=== PATIENT | female | born 1960 | race Caucasian/White ===

== ENCOUNTER → 2017-05-20 | Outpatient (CLI) | payer BC ==
--- NOTE | 2017-06-04 11:48 | MM ---
Reason for exam: screening (asymptomatic). Last mammogram was performed 4 years and 10 months ago. History: Family history of breast cancer in sister at age 63. Benign US LT VAD breast biopsy of the left breast, July 07, 2012. Benign left breast aspiration of the left breast, July 07, 2012. Benign cyst aspiration of the left breast, November 15, 2006. Benign cyst aspiration of the left breast, 2003. Took hormonal contraceptives for 10 years beginning at age 20. Physical Findings: A clinical breast exam by your physician is recommended on an annual basis and results should be correlated with mammographic findings. MG 3D Screening Mammo W/Cad Bilateral CC and MLO view(s) were taken. Prior study comparison: April 14, 2013, mammogram, performed at [facility]. July 07, 2012, left breast digital mammogram. June 25, 2012, left diagnostic mammogram w/CAD. The breast tissue is extremely dense which could obscure a lesion on mammography. Previous mammotome biopsy in the left breast. No significant changes when compared with prior studies. ASSESSMENT: Benign, BI-RAD 2 RECOMMENDATION: Routine screening mammogram of both breasts in 1 year.
== END | disposition home or self-care (01) ==
LOC: RADMAMWWP 10:03
PROVIDERS: ATTEND Obstetrics & Gynecology
DX: Z12.31 Encounter for screening mammogram for malignant neoplasm of breast (principal); Z80.3 Family history of malignant neoplasm of breast
CPT/HCPCS: 77063; G0202

== ENCOUNTER 2017-06-11 08:32 | Day surgery (SDC) | payer BC ==
[2017-06-07 11:20] VITALS: BMI 22.6
[~2017-06-11 08:32] MED LIST: LACTATED RINGERS 1,000 ML IV SCH
[2017-06-11 08:42] VITALS: TEMP 97.4
[2017-06-11] MEDS ORDERED: LACTATED RINGERS 1,000 ML IV ONE (08:42)
[2017-06-11] MEDS ORDERED: LIDOCAINE 1% 20 ML VIAL (10MG/ML) FOR IV START INTRADERMA ONE (08:42)
[2017-06-11] MEDS ORDERED: PROPOFOL 10 MG/ML 20 ML VIAL IV ONE (09:19)
--- NOTE | 2017-06-11 10:01 | P.PCN ---
Date of Procedure: 06/11/17 Preoperative Diagnosis: Postoperative Diagnosis: Procedure(s) Performed: Procedure: Esophagogastroduodenoscopy and biopsy. Preoperative diagnosis: Dysphagia. Postoperative diagnosis: 1. Hiatal hernia and benign esophageal, dilated to 18 mm. 2. mild antral gastritis. 3. Multiple biopsies obtained from the duodenum , antrum and esophagus. Preparation and sedation: Was provided by anesthesia. Brief clinical history: The patient is a 56-year-old female with history of reflux disease is referred for this evaluation because of onset of intermittent epigastric pain and dysphagia. She wakes up at night at times to take Tums. No other alarm symptoms or anemia. Procedures: With the patient on her left lateral decubitus position and after informed consent and adequate sedation, I passed the Olympus-GIF 160 video upper endoscope through the cricopharyngeus down the esophagus. GE junction was around 36 cm from the incisors and there was a 2 cm sliding hiatal hernia. At the level of the GE junction there was a benign short stricture. The esophagus did not show any obvious erosions or ulcers. No Shafer's esophagus. The endoscope was then passed into the stomach which was insufflated with air and inspected in detail including the retroflex view in the cardia. There was some mottling and erythema in the antrum but no ulcers or erosions. Pyloric channel, duodenal bulb, post bulbar area and descending duodenum appeared within normal limits. Because of her symptoms, I obtained biopsies from the duodenum and antrum then I proceeded with the esophageal dilation before obtaining esophageal biopsies. The esophagus was dilated using the 15-18 mm Microvasive [id number] balloon dilator which was passed through the operating channel of the endoscope, centered at the level of the stricture and inflated in a stepwise fashion up to 18 mm. The patient tolerated the procedure well. Plan: The patient was reassured. Will keep on liquid diet today. Further plans can be made based on her course. I will keep you updated on her progress. Implants: Indications for Procedure: Operative Findings: Description of Procedure:
[2017-06-11 10:44] VITALS: BP 115/78; PULSE 60; RESP 24
== END 2017-06-11 10:44 | disposition home or self-care (01) ==
LOC: ORWHC2ENDO 08:32
DX: K22.2 Esophageal obstruction (principal); K29.70 Gastritis, unspecified, without bleeding; K44.9 Diaphragmatic hernia without obstruction or gangrene; K21.9 Gastro-esophageal reflux disease without esophagitis; F41.9 Anxiety disorder, unspecified; Z72.0 Tobacco use; Z79.899 Other long term (current) drug therapy
CPT/HCPCS: 88305; 88342; 43239; 43249; J2704; C1726; 43244

== ENCOUNTER → 2018-04-03 | Outpatient (CLI) | payer BC | END | disposition home or self-care (01) | LOC: RADECHMAIN 12:31 | PROVIDERS: ATTEND Family Medicine | DX: R00.2 Palpitations (principal) | CPT/HCPCS: 93225; 93226 ==

== ENCOUNTER → 2018-04-08 | Outpatient (CLI) | payer BC ==
--- NOTE | 2018-04-08 12:37 | ECHOS ---
STRESS ECHOCARDIOGRAM DATE OF SERVICE: 04/08/2018 INDICATIONS: Palpitations. MEDICATIONS: BASELINE HEART RATE: 70 BASELINE BLOOD PRESSURE: 136/92 MAXIMUM HEART RATE: 152 MAXIMUM BLOOD PRESSURE: 183/99 85% MPHR: 140 100% MPHR: 165 METS: 13.5 MAXIMUM STAGE REACHED: IV TOTAL EXERCISE TIME: 13 minutes CLINICAL INFORMATION: Baseline EKG revealed normal sinus rhythm without significant ST-T changes. Patient walked on standard Rafa protocol for 13 minutes, achieved a maximal heart rate of 152 beats per minute. Developed fatigue and shortness of breath but did not have any angina or any significant arrhythmia. There was some baseline artifact. At peak exercise, there was no evidence of any ST-segment changes to indicate ischemia. There was no arrhythmia. This is a negative stress test with excellent exercise capacity. Baseline echo images revealed normal wall motion and wall thickening. The quality of images were somewhat suboptimal. At peak exercise, there was good augmentation of left ventricular wall motion and wall thickening of all segments suggesting that there is no evidence of stress-induced ischemia. The quality of images was fair. FINAL IMPRESSION: 1. Excellent exercise capacity with a negative stress test by EKG criteria. 2. Normal stress echocardiogram with somewhat suboptimal images. MMODL / IJN: [id number] /
== END | disposition home or self-care (01) ==
LOC: RADNMMAIN 10:04
PROVIDERS: ATTEND Family Medicine
DX: R00.2 Palpitations (principal)
CPT/HCPCS: 93351

== ENCOUNTER → 2019-06-16 | Outpatient (CLI) | payer BC ==
--- NOTE | 2019-06-18 10:27 | MM ---
Reason for exam: screening (asymptomatic). Last mammogram was performed 2 years and 1 month ago. History: Family history of breast cancer in sister at age 63. Benign US LT VAD breast biopsy of the left breast, July 07, 2012. Benign left breast aspiration of the left breast, July 07, 2012. Benign cyst aspiration of the left breast, November 15, 2006. Benign cyst aspiration of the left breast, 2003. Took hormonal contraceptives for 10 years beginning at age 20. Physical Findings: A clinical breast exam by your physician is recommended on an annual basis and results should be correlated with mammographic findings. MG 3D Screening Mammo W/Cad Bilateral CC and MLO view(s) were taken. Prior study comparison: May 20, 2017, bilateral MG 3d screening mammo w/cad. April 14, 2013, mammogram, performed at [facility]. The breast tissue is extremely dense which could obscure a lesion on mammography. Previous mammotome biopsy in the left breast. No significant changes when compared with prior studies. ASSESSMENT: Benign, BI-RAD 2 RECOMMENDATION: Routine screening mammogram of both breasts in 1 year.
== END | disposition home or self-care (01) ==
LOC: RADMAMWWP 14:05
PROVIDERS: ATTEND Family Medicine
DX: Z12.31 Encounter for screening mammogram for malignant neoplasm of breast (principal)
CPT/HCPCS: 77063; 77067

== ENCOUNTER → 2019-12-25 | Outpatient (CLI) | payer BC | END | disposition home or self-care (01) | LOC: LABWHC1 12:44 | PROVIDERS: ATTEND Nurse Practitioner Family | DX: B34.9 Viral infection, unspecified (principal) | CPT/HCPCS: 87502 ==

== ENCOUNTER 2021-01-02 14:04 | Emergency (ER) | payer BC ==
[2021-01-02 14:16] VITALS: TEMP 98.2
--- NOTE | 2021-01-02 15:17 | ED ---
General Adult HPI - General Chief complaint: Recheck/Abnormal Lab/Rx Stated complaint: BAM Time Seen by Provider: 01/02/21 14:17 Source: patient, RN notes reviewed Mode of arrival: ambulatory Limitations: no limitations - History of Present Illness Initial comments: Patient is a pleasant 60-year-old female presenting to the emergency department with treatment for covid with BAM. This was ordered as an outpatient by primary care physician. Patient has had symptoms for 5-6 days. Patient was diagnosed +5 days ago. Patient does have chills and myalgias and generalized shaking. Mild cough. Patient has decreased appetite and some nausea. Patient does have history of hypertension and hyperlipidemia. No dyspnea. Patient is tolerating liquids. - Related Data Home Medications Medication Instructions Recorded Confirmed ALPRAZolam [Xanax] 0.25 mg PO HS PRN 06/07/17 06/07/17 diphenhydrAMINE HCL [Benadryl] 25 mg PO HS PRN 06/07/17 06/07/17 Allergies Allergy/AdvReac Type Severity Reaction Status Date / Time No Known Allergies Allergy Verified 01/02/21 14:16 Review of Systems ROS Statement: Those systems with pertinent positive or pertinent negative responses have been documented in the HPI. ROS Other: All systems not noted in ROS Statement are negative. Constitutional: Reports: chills Eyes: Denies: eye pain ENT: Denies: ear pain Respiratory: Reports: cough. Denies: dyspnea Cardiovascular: Denies: chest pain Endocrine: Reports: fatigue Gastrointestinal: Denies: abdominal pain Genitourinary: Denies: dysuria Musculoskeletal: Denies: back pain Skin: Denies: rash Neurological: Denies: weakness Past Medical History Additional Past Medical History / Comment(s): RECENT HX OF FOOD STICKING IN THROAT History of Any Multi-Drug Resistant Organisms: None Reported Past Surgical History: Cholecystectomy, Uterine Ablation Additional Past Surgical History / Comment(s): COLONOSCOPY Past Anesthesia/Blood Transfusion Reactions: Motion Sickness Past Psychological History: No Psychological Hx Reported Smoking Status: Current some day smoker Past Alcohol Use History: Occasional Past Drug Use History: None Reported - Past Family History Sister(s) Family Medical History: Cancer General Exam Limitations: no limitations General appearance: alert, in no apparent distress Head exam: Present: normocephalic Eye exam: Present: normal appearance Neck exam: Present: normal inspection Respiratory exam: Present: normal lung sounds bilaterally Cardiovascular Exam: Present: regular rate, normal rhythm GI/Abdominal exam: Present: soft. Absent: tenderness Extremities exam: Present: normal inspection. Absent: pedal edema, calf tenderness Neurological exam: Present: alert Psychiatric exam: Present: normal affect, normal mood Skin exam: Present: normal color Course Vital Signs 01/02/21 01/02/21 14:14 14:30 Temperature 98.2 F Pulse Rate 74 Respiratory 20 Rate Blood Pressure 123/81 O2 Sat by Pulse 98 99 Oximetry Medical Decision Making - Medical Decision Making Patient will receive treatment and be observed for one hour following this Disposition Clinical Impression: COVID-19 Disposition: HOME SELF-CARE Condition: Stable Instructions (If sedation given, give patient instructions): Viral Syndrome (ED) Additional Instructions: Please follow-up with primary care physician in the next couple days for recheck. Return for difficulty in breathing, not tolerating fluids or oral intake, worsening symptoms or other concerns. Continue Tylenol as needed. Yawf-mal-chuopnl vitamin C, vitamin D, and zinc. Is patient prescribed a controlled substance at d/c from ED?: No Referrals: Osvaldo Palencia MD [Primary Care Provider] - 1-2 days
[2021-01-02] MEDS ORDERED: BAMLANIVIMAB 700 MG in SODIUM CHLORIDE 0.9% 50 ML IVPB ONE (15:30)
[2021-01-02 17:11] VITALS: BP 128/75; PULSE 70; RESP 18
== END 2021-01-02 17:18 | disposition home or self-care (01) ==
LOC: EC 14:04
DX: U07.1 COVID-19 (principal); F17.200 Nicotine dependence, unspecified, uncomplicated; Z90.49 Acquired absence of other specified parts of digestive tract
CPT/HCPCS: 99283; 96365; Q0239

== ENCOUNTER → 2021-01-24 | Outpatient (CLI) | payer BC ==
[2021-01-24 08:54] VITALS: BP 125/77; PULSE 93; RESP 16; TEMP 98.4
--- NOTE | 2021-01-24 09:41 | P.HPOB ---
History of Present Illness H&P Date: 01/24/21 Chief Complaint: The patient is here for her routine gynecologic exam and ma mmogram. This is a 60-year-old with an LMP of 2014. The patient is here to establish with this office. She is status post endometrial ablation in 2014 and has been amenorrheic since then. She has occasional hot flashes but has not had any major issues with this. She is without gynecologic complaints and denies any postmenopausal bleeding. Review of Systems Weight has been stable. She denies respiratory or cardiac problems. GI: She has had some constipation for years. She has bowel movements about once per week. She states that this does not really cause any major problems for her, but she has tried to increase her fiber in her diet. 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 History of Any Multi-Drug Resistant Organisms: None Reported Past Surgical History: Cholecystectomy, Uterine Ablation Additional Past Surgical History / Comment(s): COLONOSCOPY 2016. Endometrial ablation in approximately 2014. Past Anesthesia/Blood Transfusion Reactions: Motion Sickness Past Psychological History: No Psychological Hx Reported Smoking Status: Light tobacco smoker (About 2 cigarettes per day.) Past Alcohol Use History: Occasional (4 per week) Additional Past Alcohol Use History / Comment(s): HAD QUIT SMOKING FOR 13 YEARS. STARTED SMOKING AGAIN 2013 ONLY SMOKES 1 -2 CIGARETTES DAILY Past Drug Use History: None Reported Additional History: She has been since 1988 and works at [employer]. - Past Family History Sister(s) Family Medical History: Cancer Additional Family Medical History / Comment(s): Breast cancer Medications and Allergies Home Medications Medication Instructions Recorded Confirmed Type diphenhydrAMINE HCL [Benadryl] 25 mg PO HS PRN 06/07/17 01/24/21 History Ascorbic Acid [Vitamin C] 500 mg PO DAILY 01/24/21 01/24/21 History Cholecalciferol [Vitamin D3 (25 25 mcg PO DAILY 01/24/21 01/24/21 History Mcg = 1000 Iu)] Zinc 50 mg PO DAILY 01/24/21 01/24/21 History Allergies Allergy/AdvReac Type Severity Reaction Status Date / Time No Known Allergies Allergy Verified 01/24/21 08:50 Exam Vital Signs Temp Pulse Resp BP Pulse Ox 01/24/21 08:50 98.4 F 93 16 125/77 98 Intake and Output 01/23/21 01/24/21 01/24/21 22:59 06:59 14:59 Other: Weight 62.596 kg Height 5 feet 6 inches, weight 138 pounds, BMI 22.3. This is a well-developed well-nourished white female who is alert and oriented times 3 in no acute distress. HEENT: Within normal limits. NECK: Supple without mass or thyromegaly. CHEST AND LUNGS: Clear to auscultation. HEART: Regular rate and rhythm. BREASTS: Are without mass or discharge. AXILLARY EXAM: Negative for adenopathy. BACK: Negative for CVA tenderness. ABDOMEN: Soft, nontender, without palpable masses. PELVIC EXAM: External genitalia reveals minimal atrophy. There is slight pigmentation at the posterior fourchette which has a benign appearance. 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 Cervix and vagina appear normal. There is no unusual discharge. There is no evidence of prolapse. The uterus is midposition, nongravid size and nontender. There are no palpable adnexal masses or tenderness. RECTAL EXAM: Rectovaginal exam is negative for mass or tenderness and is negative for occult blood. EXTREMITIES: Nontender. IMPRESSION: 1. 60-year-old menopausal female with normal gynecologic exam. PLAN: 1. Pap smear cotest was performed. 2. Self breast awareness was discussed with the patient. 3. Screening mammogram will be done today. 4. Osteoporosis prevention was discussed. I have stressed the importance of adequate calcium, vitamin D and regular exercise. Recommended amounts of calcium and vitamin D were also discussed. 5. I have recommended that she quit smoking altogether. We have discussed many reasons why this is important. 6. She was advised to return in one year for her annual well woman exam.
--- NOTE | 2021-01-25 10:07 | MM ---
Reason for exam: screening (asymptomatic). Last mammogram was performed 1 year and 7 months ago. History: Family history of breast cancer in sister at age 63. Benign US LT VAD breast biopsy of the left breast, July 07, 2012. Benign left breast aspiration of the left breast, July 07, 2012. Benign cyst aspiration of the left breast, November 15, 2006. Benign cyst aspiration of the left breast, 2003. Took hormonal contraceptives for 10 years beginning at age 20. Physical Findings: A clinical breast exam by your physician is recommended on an annual basis and results should be correlated with mammographic findings. MG 3D Screening Mammo W/Cad Bilateral CC and MLO view(s) were taken. Prior study comparison: June 16, 2019, bilateral MG 3d screening mammo w/cad. May 20, 2017, bilateral MG 3d screening mammo w/cad. The breast tissue is heterogeneously dense. This may lower the sensitivity of mammography. There are benign appearing round calcifications bilaterally. Previous mammotome biopsy in the left breast. Grouped indistinct calcifications right anterior central breast on MLO 24/58 and CC 18/62. ASSESSMENT: Incomplete: need additional imaging evaluation, BI-RAD 0 RECOMMENDATION: Special view mammogram of the right breast. [facility] will attempt to contact patient to return for supplemental views.
== END ==
LOC: WWCWWP 08:38
PROVIDERS: ATTEND Obstetrics & Gynecology
DX: Z01.419 Encounter for gynecological examination (general) (routine) without abnormal findings (principal); F17.210 Nicotine dependence, cigarettes, uncomplicated; Z12.31 Encounter for screening mammogram for malignant neoplasm of breast; Z80.3 Family history of malignant neoplasm of breast
CPT/HCPCS: 77063; 77067

== ENCOUNTER → 2021-01-26 | Outpatient (CLI) | payer BC ==
--- NOTE | 2021-01-26 08:42 | MM ---
Reason for exam: additional evaluation requested from abnormal screening. Last mammogram was performed less than 1 month ago. History: Family history of breast cancer in sister at age 63. Benign US LT VAD breast biopsy of the left breast, July 07, 2012. Benign left breast aspiration of the left breast, July 07, 2012. Benign cyst aspiration of the left breast, November 15, 2006. Benign cyst aspiration of the left breast, 2003. Took hormonal contraceptives for 10 years beginning at age 20. Physical Findings: Nurse did not find any significant physical abnormalities on exam. MG 3D Work Up W/Cad RT CC with magnification, LM with magnification, and LM view(s) were taken of the right breast. Prior study comparison: January 24, 2021, bilateral MG 3d screening mammo w/cad. June 16, 2019, bilateral MG 3d screening mammo w/cad. The breast tissue is heterogeneously dense. This may lower the sensitivity of mammography. Finding: There are typically benign segmental, almost rounded calcifications in the lower outer quadrant, middle position of the right breast. New finding since June 16, 2019. These results were verbally communicated with the patient and result sheet given to the patient on 01/26/21. ASSESSMENT: Probably benign, BI-RAD 3 RECOMMENDATION: Follow-up diagnostic mammogram of the right breast in 6 months. (magnifications views x 2)
== END | disposition home or self-care (01) ==
LOC: RADMAMWWP 07:30
PROVIDERS: ATTEND Obstetrics & Gynecology
DX: R92.2 Inconclusive mammogram (principal); R92.1 Mammographic calcification found on diagnostic imaging of breast; Z80.3 Family history of malignant neoplasm of breast
CPT/HCPCS: 77061; 77065

== ENCOUNTER → 2021-08-17 | Outpatient (CLI) | payer BC ==
--- NOTE | 2021-08-18 11:04 | MM ---
Reason for exam: follow-up at short interval from prior study. Last mammogram was performed 7 months ago. History: Family history of breast cancer in sister at age 63. Benign US LT VAD breast biopsy of the left breast, July 07, 2012. Benign left breast aspiration of the left breast, July 07, 2012. Benign cyst aspiration of the left breast, November 15, 2006. Benign cyst aspiration of the left breast, 2003. Took hormonal contraceptives for 10 years beginning at age 20. Physical Findings: Nurse did not find any significant physical abnormalities on exam. MG 3D Diag Mammo W/Cad RT CC and MLO view(s) were taken of the right breast. Prior study comparison: January 26, 2021, right breast MG 3d work up w/cad RT. January 24, 2021, bilateral MG 3d screening mammo w/cad. June 16, 2019, bilateral MG 3d screening mammo w/cad. The breast tissue is heterogeneously dense. This may lower the sensitivity of mammography. Grouped calcifications, possibly early oil cyst calcifications lateral central middle depth stable to minimally increased. Continued follow up recommended. These results were verbally communicated with the patient and result sheet given to the patient on 08/17/21. ASSESSMENT: Probably benign, BI-RAD 3 RECOMMENDATION: Follow-up diagnostic mammogram of both breasts in 5 months. Back on schedule for January 2022.
== END | disposition home or self-care (01) ==
LOC: RADMAMWWP 14:43
PROVIDERS: ATTEND Obstetrics & Gynecology
DX: R92.8 Other abnormal and inconclusive findings on diagnostic imaging of breast (principal)
CPT/HCPCS: 77061; 77065

== ENCOUNTER → 2022-01-25 | Outpatient (CLI) | payer BC ==
--- NOTE | 2022-01-25 11:01 | MM ---
Reason for exam: follow-up at short interval from prior study. Last mammogram was performed 5 months ago. History: Family history of breast cancer in daughter at age 27 and breast cancer in sister at age 63. Benign US LT VAD breast biopsy of the left breast, July 07, 2012. Benign left breast aspiration of the left breast, July 07, 2012. Benign cyst aspiration of the left breast, November 15, 2006. Benign cyst aspiration of the left breast, 2003. Took hormonal contraceptives for 10 years beginning at age 20. Physical Findings: A clinical breast exam by your physician is recommended on an annual basis and results should be correlated with mammographic findings. MG 3D Diag Mammo W/Cad HARSHIL Bilateral CC and MLO view(s) were taken. CC with magnification, LM with magnification, and LM view(s) were taken of the right breast. Prior study comparison: August 17, 2021, right breast MG 3d diag mammo w/cad RT. January 26, 2021, right breast MG 3d work up w/cad RT. The breast tissue is heterogeneously dense. This may lower the sensitivity of mammography. Previous mammotome biopsy in the left breast. Right central 8 o'clock calcifications redemonstrated. These appear to have slightly increased. Again on magnification views suspect oil cyst calcifications. Ongoing short follow up recommended. Results were given to the patient verbally at the time of the exam. ASSESSMENT: Probably benign, BI-RAD 3 RECOMMENDATION: Follow-up diagnostic mammogram of the right breast in 6 months.
== END | disposition home or self-care (01) ==
LOC: RADMAMWWP 10:07
PROVIDERS: ATTEND Obstetrics & Gynecology
DX: R92.8 Other abnormal and inconclusive findings on diagnostic imaging of breast (principal)
CPT/HCPCS: 77062; 77066

== ENCOUNTER → 2022-07-17 | Outpatient (CLI) | payer BC ==
[2022-07-17 14:29] VITALS: BP 134/90; PULSE 70; RESP 17; TEMP 97.8
--- NOTE | 2022-07-17 16:09 | P.HPOB ---
History of Present Illness H&P Date: 07/17/22 Chief Complaint: The patient is here for her routine gynecologic exam. This is a 62-year-old with an LMP of 2014. The patient is without gynecologic complaints and denies any postmenopausal bleeding. Her last Pap smear on 01/24/2021 showed ASCUS with negative high-risk HPV testing. Her last mammogram was a bilateral diagnostic mammogram on 01/25/2022 and was probably benign. Right diagnostic mammogram was recommended in 6 months. The patient states she would like to have that mammogram done at [facility]. Review of Systems The patient has gained 10 pounds over the last year. She denies respiratory, cardiac, or G.I. problems. 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 History of Any Multi-Drug Resistant Organisms: None Reported Past Surgical History: Cholecystectomy, Uterine Ablation Additional Past Surgical History / Comment(s): COLONOSCOPY 2016. Endometrial ablation in approximately 2014. Past Anesthesia/Blood Transfusion Reactions: Motion Sickness Past Psychological History: No Psychological Hx Reported Smoking Status: Light tobacco smoker (About 2 cigarettes per day.) Past Alcohol Use History: Occasional (5 per week) Additional Past Alcohol Use History / Comment(s): HAD QUIT SMOKING FOR 13 YEARS. 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 - Past Family History Sister(s) Family Medical History: Cancer Additional Family Medical History / Comment(s): Breast cancer Daughter(s) Family Medical History: Cancer Additional Family Medical History / Comment(s): Diagnosed with breast cancer at age 27. The patient states her daughter tested negative for cancer gene mutations including the BRCA gene. Medications and Allergies Home Medications Medication Instructions Recorded Confirmed Type Famotidine [Pepcid] 40 mg PO DAILY 07/17/22 07/17/22 History Allergies Allergy/AdvReac Type Severity Reaction Status Date / Time No Known Allergies Allergy Verified 07/17/22 14:14 Exam Vital Signs Temp Pulse Resp BP Pulse Ox 07/17/22 14:26 97.8 F 70 17 134/90 96 Intake and Output 07/17/22 07/17/22 07/17/22 06:59 14:59 22:59 Other: Weight 67.132 kg Height 5 feet 6 inches, weight 148 pounds, BMI 23.9. This is a well-developed well-nourished white female who is alert and oriented times 3 in no acute distress. HEENT: Within normal limits. NECK: Supple without mass or thyromegaly. CHEST AND LUNGS: Clear to auscultation. HEART: Regular rate and rhythm. BREASTS: Are without mass or discharge. AXILLARY EXAM: Negative for adenopathy. BACK: Negative for CVA tenderness. ABDOMEN: Soft, nontender, without palpable masses. PELVIC EXAM: Normal external genitalia with mild atrophy. Cervix and vagina appear normal with mild atrophy. There is no unusual discharge. There is no evidence of prolapse. The uterus is midposition, nongravid size and nontender. There are no palpable adnexal masses or tenderness. RECTAL EXAM: Rectovaginal exam is negative for mass or tenderness and is negative for occult blood. EXTREMITIES: Nontender. IMPRESSION: 1. 70-year-old menopausal female with normal gynecologic exam. 2. Previous Pap smear done on 01/24/2021 showed ASCUS with negative high-risk HPV testing. 3. Bilateral diagnostic mammogram done on 01/25/2022 was felt to be probably benign. 6 month right diagnostic mammogram was recommended. 4. Strong family history of breast cancer in her her sister and her daughter. PLAN: 1. Pap smear was deferred. The ASCCP management guidelines indicated a five- year risk for MARVIN-3 or greater of 0.40%. 3 year follow-up was recommended. I will be done in 1-2 years. 2. Self breast awareness was discussed with the patient. We have also discussed symptoms associated with inflammatory breast cancer. 3. Right diagnostic mammogram is due. The order slip was given to the patient for this. The patient states she is planning on having this done at [facility]. She understands she will need to bring her imaging studies with her since her last one was done at [facility]. She plans on doing this. I have stressed the importance of following through with the appropriate follow- up. 4. We have discussed the option of cancer genetic counseling and testing. She understands she is at higher risk for breast cancer because of her family history. Her daughter apparently tested negative for BRCA gene mutations. At this time she is not interested in proceeding with this type of cancer genetic counseling and testing. She will call if she wants to proceed with that kind of counseling and testing. 5. Osteoporosis prevention was discussed. I have stressed the importance of adequate calcium, vitamin D and regular exercise. Recommended amounts of calcium and vitamin D were also discussed. I have recommended baseline bone density testing. She states she would like to do this next year at her annual examination. 6. She has completed her Covid vaccination series and has received 2 boosters. 7. She was advised to return in one year for her annual well woman exam.
== END | disposition home or self-care (01) ==
LOC: WWCWWP 13:53
PROVIDERS: ATTEND Obstetrics & Gynecology
DX: Z53.9 Procedure and treatment not carried out, unspecified reason (principal)

== ENCOUNTER → 2022-07-30 | Outpatient (CLI) | payer BC ==
--- NOTE | 2022-07-30 10:19 | MM ---
Reason for Exam: Follow-up at short interval from prior study. Last screening mammogram was performed 6 month(s) ago. Patient History: Menarche at age 16. First Full-Term at age 30. Hormonal Contraceptives for 10 years from age 20 until age 29. 11/15/2006, Benign Cyst Aspiration on the left side. 2003, Benign Cyst Aspiration on the left side. 07/07/2012, Benign Cyst Aspiration on the left side. 07/07/2012, Benign Core Biopsy on the left side. Sister had breast cancer, age 63. Daughter had breast cancer, age 27. Risk Values: Ave 5 year model risk: 5.3%. NCI Lifetime model risk: 24.7%. Prior Study Comparison: 05/20/2017 Bilateral Screening Mammogram, [facility]. 06/16/2019 Bilateral Screening Mammogram, [facility]. 01/24/2021 Bilateral Screening Mammogram, [facility]. 01/26/2021 Right Diagnostic Mammogram, [facility]. 08/17/2021 Right Diagnostic Mammogram, [facility]. 01/25/2022 Bilateral Diagnostic Mammogram, [facility]. Tissue Density: Right: The breast tissue is heterogeneously dense. This may lower the sensitivity of mammography. Findings: Analyzed By CAD. Stable benign-appearing calcifications within the right breast. No new worrisome cluster microcalcifications. No new suspicious mass. Stable asymmetric right outer breast density. Patient reports pain and thickening along the right lateral breast. Overall Assessment: Incomplete: need additional imaging evaluation, BI-RAD 0 Management: Diagnostic Breast Ultrasound of the right breast. A clinical breast exam by your physician is recommended on an annual basis and results should be correlated with mammographic findings. This exam should not preclude additional follow-up of suspicious palpable abnormalities. Results were given to the patient verbally at the time of exam. Electronically signed and approved by: Todd Joyner D.O.
--- NOTE | 2022-07-30 11:16 | USB ---
Reason for Exam: Additional evaluation requested from abnormal screening. Patient History: Menarche at age 16. First Full-Term at age 30. Hormonal Contraceptives for 10 years from age 20 until age 29. 11/15/2006, Benign Cyst Aspiration on the left side. 2003, Benign Cyst Aspiration on the left side. 07/07/2012, Benign Cyst Aspiration on the left side. 07/07/2012, Benign Core Biopsy on the left side. Sister had breast cancer, age 63. Daughter had breast cancer, age 27. Risk Values: Ave 5 year model risk: 5.3%. NCI Lifetime model risk: 24.7%. Technique: Method: Targeted. Prior Study Comparison: 01/26/2021 Right Diagnostic Mammogram, [facility]. 08/17/2021 Right Diagnostic Mammogram, [facility]. 01/25/2022 Bilateral Diagnostic Mammogram, [facility]. Findings: The upper outer quadrant of the right breast, the axilla of the right breast and the retroareolar of the right breast were scanned. Limited ultrasound of the right lateral breast from 6-12 o'clock was performed. Ultrasound images of the nipple and axilla were also performed. There is a simple cyst within the right breast at 10:00 6 hours from the nipple measuring 0.4 x 0.4 x 0.4 cm without internal vascularity. Overall Assessment: Benign, BI-RAD 2 Management: Screening Mammogram of both breasts in 6 months. A clinical breast exam by your physician is recommended on an annual basis and results should be correlated with mammographic findings. This exam should not preclude additional follow-up of suspicious palpable abnormalities. ??Results were given to the patient verbally at the time of exam. Electronically signed and approved by: Todd Joyner D.O.
--- NOTE | 2022-07-31 17:39 | P.PN ---
Progress Note - Text Progress Note Date: 07/31/22 OUTPATIENT FOLLOW-UP NOTE TEST(S)/RESULTS: Right diagnostic mammogram was done on 07/30/2022. This did require a right breast ultrasound as well. The findings were benign and 6 month bilateral mammogram was recommended. METHOD OF NOTIFICATION: The patient was notified by phone. PATIENT COMMENTS: The patient feels strongly that she would like to have a bilateral diagnostic mammogram done in 6 months. She has a long history of breast procedures and abnormal mammograms she also has a sister who had breast cancer and a daughter who had breast cancer. DIAGNOSIS: Benign right diagnostic mammogram with right breast ultrasound. DISCUSSION: Bilateral diagnostic mammogram in 6 months. The order slip will be mailed to the patient. PLAN: As above. She will also return in 1 to 1-1/2 years for her well woman examination and Pap smear.
== END | disposition home or self-care (01) ==
LOC: RADMAMWWP 09:36
PROVIDERS: ATTEND Obstetrics & Gynecology
DX: R92.8 Other abnormal and inconclusive findings on diagnostic imaging of breast (principal)
CPT/HCPCS: 77061; 77065

== ENCOUNTER → 2023-02-06 | Outpatient (CLI) | payer BC ==
--- NOTE | 2023-02-06 09:23 | MM ---
Reason for Exam: Follow-up at short interval from prior study. Last screening mammogram was performed 12 month(s) ago. Patient History: Menarche at age 16. First Full-Term at age 30. Hormonal Contraceptives for 10 years from age 20 until age 29. 11/15/2006, Benign Cyst Aspiration on the left side. 2003, Benign Cyst Aspiration on the left side. 07/07/2012, Benign Cyst Aspiration on the left side. 07/07/2012, Benign Core Biopsy on the left side. Sister had breast cancer, age 63. Daughter had breast cancer, age 27. Risk Values: Ave 5 year model risk: 5.3%. NCI Lifetime model risk: 24.7%. Prior Study Comparison: 07/07/2012 Left Diagnostic Mammogram, [facility]. 04/14/2013 Screening Mammogram, [facility]. 05/20/2017 Bilateral Screening Mammogram, [facility]. 06/16/2019 Bilateral Screening Mammogram, [facility]. 01/24/2021 Bilateral Screening Mammogram, [facility]. 01/26/2021 Right Diagnostic Mammogram, [facility]. 08/17/2021 Right Diagnostic Mammogram, [facility]. 01/25/2022 Bilateral Diagnostic Mammogram, [facility]. 07/30/2022 Right US breast limited RT, [facility]. 07/30/2022 Right MG 3D diag mammo w/cad RT, [facility]. Tissue Density: The breast tissue is heterogeneously dense. This may lower the sensitivity of mammography. Findings: Analyzed By CAD. Left breast biopsy clip. No new suspicious masses, calcifications or distortions. Overall Assessment: Negative, BI-RAD 1 Management: Screening Mammogram of both breasts in 1 year. A clinical breast exam by your physician is recommended on an annual basis and results should be correlated with mammographic findings. This exam should not preclude additional follow-up of suspicious palpable abnormalities. Results were given to the patient verbally at the time of exam. Electronically signed and approved by: Aquiles Mitchell DO
== END | disposition home or self-care (01) ==
LOC: RADMAMWWP 08:51
PROVIDERS: ATTEND Obstetrics & Gynecology
DX: R92.8 Other abnormal and inconclusive findings on diagnostic imaging of breast (principal); Z80.3 Family history of malignant neoplasm of breast
CPT/HCPCS: 77062; 77066

== ENCOUNTER → 2023-03-05 | Outpatient (CLI) | payer BC ==
[2023-03-05 11:27] VITALS: BP 120/77; PULSE 76; RESP 17; TEMP 97.9
--- NOTE | 2023-03-05 12:35 | P.HPOB ---
History of Present Illness H&P Date: 03/05/23 Chief Complaint: The patient is here for her routine gynecologic exam. This is a 62-year-old with an LMP of 2014. She denies any post menopausal bleeding. She had a Pap smear on 01/24/2021 which showed rare ASCUS with negative high-risk HPV testing. She states her noticed a darker area in the skin where her episiotomy was. He has noticed this for several years, but is wondering if it has gotten darker. She is otherwise without complaints. Review of Systems The patient has lost 6 pounds over the last year. She denies respiratory, cardiac, or G.I. problems. 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 History of Any Multi-Drug Resistant Organisms: None Reported Past Surgical History: Cholecystectomy, Uterine Ablation Additional Past Surgical History / Comment(s): COLONOSCOPY 2016. Endometrial ablation in approximately 2014. Past Anesthesia/Blood Transfusion Reactions: Motion Sickness Past Psychological History: No Psychological Hx Reported Smoking Status: Former smoker Past Alcohol Use History: Occasional (6-8 per week) Additional Past Alcohol Use History / Comment(s): "closet" smoker for many years and smoked 1-2 cigarettes per day. She states she quit in October 2022. 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 - Past Family History Sister(s) Family Medical History: Cancer Additional Family Medical History / Comment(s): Breast cancer Daughter(s) Family Medical History: Cancer Additional Family Medical History / Comment(s): Diagnosed with breast cancer at age 27. The patient states her daughter tested negative for cancer gene mutations including the BRCA gene. Medications and Allergies Home Medications Medication Instructions Recorded Confirmed Type Famotidine [Pepcid] 40 mg PO DAILY 07/17/22 03/05/23 History Aspirin 81 mg PO DAILY 03/05/23 03/05/23 History PARoxetine [Paxil] 20 mg PO DAILY 03/05/23 03/05/23 History Rosuvastatin [Crestor] 20 mg PO DAILY 03/05/23 03/05/23 History Allergies Allergy/AdvReac Type Severity Reaction Status Date / Time No Known Allergies Allergy Verified 03/05/23 11:22 Exam Vital Signs Temp Pulse Resp BP Pulse Ox 03/05/23 11:24 97.9 F 76 17 120/77 98 Intake and Output 03/04/23 03/05/23 03/05/23 22:59 06:59 14:59 Other: Weight 64.41 kg Height 5 feet 6 inches, weight 142 pounds, BMI 22.9. This is a well-developed well-nourished white female who is alert and oriented times 3 in no acute distress. HEENT: Within normal limits. NECK: Supple without mass or thyromegaly. CHEST AND LUNGS: Clear to auscultation. HEART: Regular rate and rhythm. BREASTS: Are without mass or discharge. AXILLARY EXAM: Negative for adenopathy. BACK: Negative for CVA tenderness. ABDOMEN: Soft, nontender, without palpable masses. PELVIC EXAM: On initial inspection the external genitalia reveals mild atrophy without lesions. The posterior introitus does reveal some pigmented skin at the most anterior aspect of the perineum which is noticeable when spreading the lips apart. The tissue is normal to palpation but is pigmented with the darkest area in the center. The darkest area measures approximately 3 x 2 mm. This is nontender. This does have a benign appearance. Cervix and vagina appear normal with mild atrophy. There is no unusual discharge. There is no evidence of prolapse. The uterus is midposition, nongravid size and nontender. There are no palpable adnexal masses or tenderness. RECTAL EXAM: Rectovaginal exam is negative for mass or tenderness and is negative for occult blood. EXTREMITIES: Nontender. IMPRESSION: 1. 62-year-old menopausal female with perineal pigmentation at the introitus which has a benign appearance. 2. Previous Pap smear showing rare ASCUS with negative high-risk HPV testing on 01/24/2021. PLAN: 1. Pap smear cotest was performed. 2. Self breast awareness was discussed with the patient. We have also discussed symptoms associated with inflammatory breast cancer. 3. Diagnostic mammogram was done bilaterally on 02/06/2023 and was benign. Screening mammogram in 1 year was recommended. 4. Osteoporosis prevention was discussed. I have stressed the importance of adequate calcium, vitamin D and regular exercise. Recommended amounts of calcium and vitamin D were also discussed. I have recommended a baseline bone density test and the order slip was given to the patient for this. 5. We have discussed the pigmented area at the posterior introitus. I have mentioned to the patient that this has a benign appearance and she believes this has been there for several years. We have discussed conservative management as well as the option to biopsy this area. Initially I thought conservative management and observation is adequate, however, after contemplating this feel that we should consider biopsying this and I will discuss this further with the patient. 6. She was advised to return in one year for her annual well woman exam and as needed.
== END ==
LOC: WWCWWP 11:15
PROVIDERS: ATTEND Obstetrics & Gynecology
DX: Z01.419 Encounter for gynecological examination (general) (routine) without abnormal findings (principal); Z78.0 Asymptomatic menopausal state; Z79.82 Long term (current) use of aspirin; F17.200 Nicotine dependence, unspecified, uncomplicated

== ENCOUNTER → 2023-03-06 | Day surgery (SDC) | payer BC ==
[2023-03-06 10:18] VITALS: RESP 17; TEMP 98.2
[2023-03-06 10:19] VITALS: BP 124/85; PULSE 76
--- NOTE | 2023-03-06 10:35 | P.PCN ---
Date of Procedure: 03/06/23 Preoperative Diagnosis: Abnormal pigmented posterior vulvar introitus Postoperative Diagnosis: Same Procedure(s) Performed: Vulvar biopsy at the posterior introitus Anesthesia: local Surgeon: Tony Cano Estimated Blood Loss (ml): 1 Pathology: other (vulvar introitus biopsy) Condition: stable Disposition: same day Indications for Procedure: This was a 62-year-old female with a pigmented area at the posterior introitus and this has gotten darker over time. Operative Findings: The posterior introitus had a pigmented area which was darkest in the midline. The darkest area measured approximately 3 x 3 mm. The kettle hand, less pigmented area extended bilaterally by about 5 mm on each side. This area was not inflamed and also was not raised. Description of Procedure: The procedure was described to the patient. Possible risks and complications were discussed including bleeding and infection. All questions were answered. The patient was placed in the lithotomy position and the area was prepped with Betadine solution. Approximately 0.5 mL of 1% lidocaine was used for local anesthesia. Following determination of adequate anesthesia, a cervical biopsy instrument was used to biopsy the darkest part of the pigmented area that was in the midline. The tissue was sent for pathological examination. A single silver nitrate stick was used to obtain hemostasis. Triple antibiotic ointment was applied to the area. A 4 x 4 gauze was placed between the vulva and the patient was given a pad to her home. The patient tolerated the procedure well. There were no complications. Postprocedure blood pressure was 124/85, pulse was 76 and pulse oximeter was 99%. The patient was discharged home in stable condition. The patient was instructed to call if she has unusual pain, fever, persistent bleeding, or problems. She was instructed to apply a small amount of Neosporin ointment 2 times daily until healed. She is to avoid all sexual activity until it is well-healed and she will avoid running today.
--- NOTE | 2023-03-09 11:50 | P.PN ---
Progress Note - Text Progress Note Date: 03/09/23 Biopsy results from 03/06/23 was benign. 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 The patient was notified by phone on 03/09/23. She states it was feeling sore after the biopsy but is feeling better. She is to call if problems.
== END ==
LOC: WWCWWP 09:33
PROVIDERS: ATTEND Obstetrics & Gynecology
DX: N90.89 Other specified noninflammatory disorders of vulva and perineum (principal)
CPT/HCPCS: 88305

== ENCOUNTER 2023-10-02 08:06 | Day surgery (SDC) | payer BC ==
[2023-10-02 08:26] VITALS: TEMP 97.6
[2023-10-02] MEDS ORDERED: PROPOFOL 10 MG/ML 20 ML VIAL IV ONE (08:51)
[2023-10-02] MEDS ORDERED: LIDOCAINE 1% INJ 10MG/ML (20 ML MDV) ONE (08:51)
--- NOTE | 2023-10-02 09:23 | P.PCN ---
Date of Procedure: 10/02/23 Procedure(s) Performed: Brief history: Patient is a pleasant 63-year-old white female scheduled for an elective upper endoscopy as well as colonoscopy as a part of evaluation of GERD/intermittent dysphagia to solids and screening for colon cancer Procedure performed: Esophagogastroduodenoscopy with biopsy and dilation Colonoscopy Preoperative diagnosis: GERD/intermittent dysphagia to solids Screening for colon cancer Anesthesia: MAC Procedure: After informed consent was obtained from the patient was brought into the endoscopy unit and IV sedation was administered by anesthesia under continuous monitoring. Initially upper endoscopy was done. The Olympus GF 160 video endoscope was inserted inserted into the mouth and esophagus intubated without any difficulty and was gradually advanced into the stomach and duodenum and carefully examined. The bulb and second part of the duodenum appeared normal. The scope was then withdrawn into the stomach adequately insufflated with air and upon careful examination the antrum and body, cardia and fundus appeared normal. The scope was then withdrawn into the esophagus. The GE junction was located at 40 cm to the incisors. Small hiatal hernia noted. There was a distal esophageal Schatzki's ring identified which was dilated using 18-20 mm TTS balloon in a sequential fashion for 60 seconds. The GE junction appeared regular with no erythema erosions or ulcerations. Rest of the esophagus appeared normal. Patient tolerated the procedure well. At this time the patient continued to remain sedation. Initial digital rectal examination was normal. Olympus CF 160 video colonoscope was then inserted into the rectum and gradually advanced to the cecum without any difficulty. Careful examination was performed as the scope was gradually being withdrawn. The prep was excellent. The cecum, ascending colon, transverse colon, descending colon, sigmoid colon and rectum appeared normal. Retroflexion was performed in the rectum and no lesions were noted. Patient tolerated the procedure well. Impression: 1. Upper Endoscopy revealed distal esophageal Schatzki's ring was performed with dilation the 20 mm TTS balloon, small hiatal hernia and mild antral gastritis 2. Colonoscopy was within normal limits with no evidence of colorectal neoplasia Recommendations: Findings of this examination were discussed with the patient as well as her family. She was advised to be on a clear liquid diet. Continue with Pepcid 20 mg twice daily and follow antrum reflux measures. Recommend repeat screening colonoscopy in 10 years.]
[2023-10-02 09:51] VITALS: BP 100/67; PULSE 54; RESP 16
== END 2023-10-02 10:12 | disposition home or self-care (01) ==
LOC: ORWHC2ENDO 08:06
PROVIDERS: ATTEND Internal Medicine Gastroenterology
DX: Z12.11 Encounter for screening for malignant neoplasm of colon (principal); K22.2 Esophageal obstruction; K29.50 Unspecified chronic gastritis without bleeding; K21.9 Gastro-esophageal reflux disease without esophagitis; I34.1 Nonrheumatic mitral (valve) prolapse; K44.9 Diaphragmatic hernia without obstruction or gangrene; F41.9 Anxiety disorder, unspecified; Z87.891 Personal history of nicotine dependence; Z79.899 Other long term (current) drug therapy
CPT/HCPCS: 88305; 45378; 43239; 43249; J2001; J2704; C1726

== ENCOUNTER → 2024-02-25 | Outpatient (CLI) | payer BC ==
--- NOTE | 2024-02-25 12:22 | CT ---
EXAMINATION TYPE: CT chest w con DATE OF EXAM: 02/25/2024 COMPARISON: None HISTORY: cough CT DLP: 170.1 mGycm Automated exposure control for dose reduction was used. CONTRAST: CT scan of the chest is performed with IV Contrast, patient injected with 100 mL of Isovue 300. FINDINGS: LUNGS: The lungs are grossly clear, there is no concerning parenchymal mass or nodule identified. T here is no pleural effusion or pneumothorax seen. The tracheobronchial tree is patent. MEDIASTINUM: There are no greater than 1 cm hilar or mediastinal lymph nodes. No pericardial effusi on is seen. Thoracic aorta is of normal caliber. The heart is not enlarged. UPPER ABDOMEN: No significant abnormality appreciated. OTHER: No additional significant abnormality is seen. IMPRESSION:
--- NOTE | 2024-02-25 20:28 | MM ---
Reason for Exam: Screening (asymptomatic). Last mammogram was performed 1 year(s) and 1 month(s) ago. Patient History: Menarche at age 16. First Full-Term at age 30. Postmenopausal. Hormonal Contraceptives for 10 years from age 20 until age 29. 11/15/2006, Benign Cyst Aspiration on the left side. 2003, Benign Cyst Aspiration on the left side. 07/07/2012, Benign Cyst Aspiration on the left side. 07/07/2012, Benign Core Biopsy on the left side. Sister had breast cancer, age 63. Daughter had breast cancer, age 27. Risk Values: Willa 5 year model risk: 5.5%. NCI Lifetime model risk: 24.1%. Prior Study Comparison: 01/25/2022 Bilateral Diagnostic Mammogram, [facility]. 07/30/2022 Right MG 3D diag mammo w/cad RT, [facility]. 02/06/2023 Bilateral MG 3D diag mammo w/cad HAR[facility], [facility]. Tissue Density: The breasts are heterogeneously dense, which may obscure small masses. Findings: Analyzed By CAD. Chronic nodularity lateral right cc view. Areas of asymmetric density subareolar and medial right CC view are unchanged. Microclip left breast from prior biopsy. There is no suspicious group of microcalcifications or new suspicious mass in either breast. Overall Assessment: Benign, BI-RAD 2 Management: Screening Mammogram of both breasts in 1 year. SEE NOTE BELOW IN REGARDS TO PATIENT'S INCREASED 5 YEAR WILLA SCORE AND INCREASED LIFETIME RISK SCORE. Patient should continue monthly self-breast exams. A clinical breast exam by your physician is recommended on an annual basis. This exam should not preclude additional follow-up of suspicious palpable abnormalities. Note on Willa scores and lifetime risk: 1. A Willa score greater than 3% is considered moderate risk. If this is the case, consider specialist referral to assess eligibility for a risk reducing agent. 2. If overall lifetime risk for the development of breast cancer is 20% or higher, the patient may qualify for future screening with alternating mammogram and breast MRI. Electronically signed and approved by: Hadley Medel M.D. Radiologist
--- NOTE | 2024-02-25 20:45 | BD ---
EXAMINATION TYPE: Axial Bone Density DATE OF EXAM: 02/25/2024 CLINICAL HISTORY: 63 years old Female. ICD-10 CODE: Z13.820 osteoporosis Height: 65 Weight: 140 FRAX RISK QUESTIONS: Alcohol (3 or more units per day): sometimes Family History (Parent hip fracture): yes 3. Menopause before 45: unknown Current Tobacco Use: yes RISK FACTORS HISTORY OF: nothing to note here MEDICATIONS: statin for cholesterol, EXAM MEASUREMENTS: Bone mineral densitometry was performed using the BCNX System. Bone mineral density as measured about the Lumbar spine is: ----- L1-L4(G/cm2): 1.171 T Score Values are as follows: ----- L1: -1.1 ----- L2: -0.3 ----- L3: -0.3 ----- L4: 1.0 ----- L1-L4: -0.1 Z Score Values are as follows: ----- L1: 0.2 ----- L2: 1.1 ----- L3: 1.1 ----- L4: 2.3 ----- L1-L4: 1.3 Bone mineral density is a baseline study today. Bone mineral density about the R hip (g/cm2): 1.081 Bone mineral density about the L hip (g/cm2): 1.151 T Score values are as follows: -----R Neck: -0.3 -----L Neck: 0.0 -----R Total: 0.6 -----L Total: 1.1 Z Score values are as follows: -----R Neck: 1.0 -----L Neck: 1.3 -----R Total: 1.6 -----L Total: 2.2 Bone mineral density is a baseline study today. FRAX%s: The graph provided illustrates a 14.7% chance for a major osteoporotic fx and a 0.6% chance f or the hips probability for fx in 10 years time. IMPRESSION: Normal (Values between +1 and -1 indicate normal bone mass). Consider repeating this study in 5 year s or sooner if there is some new clinical indication. NOTE: T-SCORE=SD OF THE YOUNG ADULT MEAN.
== END | disposition home or self-care (01) ==
LOC: RADMAMWWP 11:35
PROVIDERS: ATTEND Internal Medicine
DX: Z12.31 Encounter for screening mammogram for malignant neoplasm of breast (principal); Z13.820 Encounter for screening for osteoporosis; M85.88 Other specified disorders of bone density and structure, other site; R05.1 Acute cough; Z78.0 Asymptomatic menopausal state; Z80.3 Family history of malignant neoplasm of breast
CPT/HCPCS: 77080; 77067; 77063; 71260; Q9967

== ENCOUNTER → 2025-01-27 | Outpatient (CLI) | payer BC ==
[2025-01-27 11:18] VITALS: BP 126/89; PULSE 81; RESP 16; TEMP 97.9
--- NOTE | 2025-01-27 11:46 | P.HPOB ---
History of Present Illness H&P Date: 01/27/25 Chief Complaint: The patient is here for her routine gynecologic exam. This is a 64-year-old G2, P2 with an LMP of 2014. The patient is without gynecologic complaints. She had a vulvar biopsy in 2022 because of a pigmented area at the posterior introitus and this was benign. The patient has not noticed any changes in that area. Review of Systems The patient has gained 6 pounds over the last year. She denies respiratory, cardiac, or G.I. problems. Past Medical History Past Medical History: No Reported History Additional Past Medical History / Comment(s): MVP "very mild leaking". 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 History of Any Multi-Drug Resistant Organisms: None Reported Past Surgical History: Cholecystectomy, Uterine Ablation Additional Past Surgical History / Comment(s): colonoscopy/EGD 2022(next after 10yr), endometrial ablation in approximately 2014, Past Anesthesia/Blood Transfusion Reactions: No Reported Reaction, Motion Sickness Past Psychological History: Anxiety Smoking Status: Former smoker Past Alcohol Use History: Occasional (8 drinks per week.) Additional Past Alcohol Use History / Comment(s): "closet" smoker for many years and smoked 1-2 cigarettes per day. She states she quit in October 2022. 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 - Past Family History Sister(s) Family Medical History: Cancer Additional Family Medical History / Comment(s): Breast cancer. The patient believes her sister tested negative for the BRCA gene. Daughter(s) Family Medical History: Cancer Additional Family Medical History / Comment(s): Diagnosed with breast cancer at age 27. The patient states her daughter tested negative for cancer gene mutations including the BRCA gene. Medications and Allergies Home Medications Medication Instructions Recorded Confirmed Type Famotidine [Pepcid] 40 mg PO DAILY 07/17/22 01/27/25 History PARoxetine [Paxil] 20 mg PO QAM 03/05/23 01/27/25 History Rosuvastatin [Crestor] 20 mg PO DAILY 03/05/23 01/27/25 History Allergies Allergy/AdvReac Type Severity Reaction Status Date / Time No Known Allergies Allergy Verified 01/27/25 11:15 Exam Vital Signs Temp Pulse Resp BP Pulse Ox 01/27/25 11:15 97.9 F 81 16 126/89 95 Intake and Output 01/26/25 01/27/25 01/27/25 22:59 06:59 14:59 Other: Weight 67.132 kg Height 5 feet 6 inches, weight 148 pounds, BMI 23.9. This is a well-developed well-nourished white female who is alert and oriented times 3 in no acute distress. HEENT: Within normal limits. NECK: Supple without mass or thyromegaly. CHEST AND LUNGS: Clear to auscultation. HEART: Regular rate and rhythm. BREASTS: Are without mass or discharge. AXILLARY EXAM: Negative for adenopathy. BACK: Negative for CVA tenderness. ABDOMEN: Soft, nontender, without palpable masses. PELVIC EXAM: External genitalia reveals mild atrophy. The posterior introitus has a line of slightly pigmented tissue. This was biopsied on 03/06/2023 and was benign. Cervix and vagina appear normal with mild atrophy. There is no unusual discharge. There is no evidence of prolapse. The uterus is midposition, nongravid size and nontender. There are no palpable adnexal masses or tenderness. RECTAL EXAM: Rectovaginal exam is negative for mass or tenderness and is negative for occult blood. EXTREMITIES: Nontender. IMPRESSION: 1. 64-year-old menopausal female with stable benign posterior introitus pigmentation. Previous benign biopsy in 2022. 2. Strong family history of breast cancer in her sister and daughter. Patient states both tested negative for the BRCA gene. PLAN: 1. Pap smear was deferred since she had a negative Pap smear cotest on 03/05/2023. 2. Self breast awareness was discussed with the patient. We have also discussed symptoms associated with inflammatory breast cancer. 3. Screening mammogram will be due in February and the order slip was given to the patient for this. She is going to discuss whether she should have MRIs done on the breast with Dr. Paniagua, her PCP. She was told that Dr. Paniagua her would have to order this for her. 4. Osteoporosis prevention was discussed. I have stressed the importance of adequate calcium, vitamin D and regular exercise. Recommended amounts of calcium and vitamin D were also discussed. She had a normal bone density test done on 02/25/2024. She will repeat this in approximately 2028. 5. She was advised to return in one year for her annual well woman exam.
== END ==
LOC: WWCWWP 10:46
PROVIDERS: ATTEND Obstetrics & Gynecology
DX: Z01.419 Encounter for gynecological examination (general) (routine) without abnormal findings (principal); F17.210 Nicotine dependence, cigarettes, uncomplicated; Z78.0 Asymptomatic menopausal state; Z80.3 Family history of malignant neoplasm of breast

== ENCOUNTER → 2025-04-27 | Outpatient (CLI) | payer BC ==
--- NOTE | 2025-04-27 10:42 | MM ---
Reason for Exam: Screening (asymptomatic). Last mammogram was performed 1 year(s) and 2 month(s) ago. Patient History: Menarche at age 16. First Full-Term at age 30. Postmenopausal. Hormonal Contraceptives for 10 years from age 20 until age 29. 11/15/2006, Benign Cyst Aspiration on the left side. 2003, Benign Cyst Aspiration on the left side. 07/07/2012, Benign Cyst Aspiration on the left side. 07/07/2012, Benign Core Biopsy on the left side. Sister had breast cancer, age 63. Daughter had breast cancer, age 27. Risk Values: Ave 5 year model risk: 5.7%. NCI Lifetime model risk: 23.5%. Prior Study Comparison: 05/20/2017 Bilateral Screening Mammogram, [facility]. 06/16/2019 Bilateral Screening Mammogram, [facility]. 01/24/2021 Bilateral Screening Mammogram, [facility]. 01/26/2021 Right Diagnostic Mammogram, [facility]. 08/17/2021 Right Diagnostic Mammogram, [facility]. 01/25/2022 Bilateral Diagnostic Mammogram, [facility]. 07/30/2022 Right MG 3D diag mammo w/cad RT, [facility]. 02/06/2023 Bilateral MG 3D diag mammo w/cad HARSH[facility], [facility]. 02/25/2024 Bilateral MG 3D screening mammo w/cad, [facility]. Tissue Density: The breasts are heterogeneously dense, which may obscure small masses. Findings: Analyzed By CAD. Asymmetric nodular density upper outer right breast 6 cm from the nipple measuring approximately 10 mm. Additional views recommended. Otherwise no suspicious microcalcifications evident. Overall Assessment: Incomplete: need additional imaging evaluation, BI-RAD 0 Management: Diagnostic Mammogram of the right breast. . Patient should continue monthly self-breast exams. A clinical breast exam by your physician is recommended on an annual basis. This exam should not preclude additional follow-up of suspicious palpable abnormalities. Note on Ave scores and lifetime risk: 1. A Ave score greater than 3% is considered moderate risk. If this is the case, consider specialist referral to assess eligibility for a risk reducing agent. 2. If overall lifetime risk for the development of breast cancer is 20% or higher, the patient may qualify for future screening with alternating mammogram and breast MRI. [facility], , 04/27/2025 10:39 AM. Electronically signed and approved by: Terry Zhong M.D. Radiologis
== END | disposition home or self-care (01) ==
LOC: RADMAMWWP 09:58
PROVIDERS: ATTEND Internal Medicine
DX: Z12.31 Encounter for screening mammogram for malignant neoplasm of breast (principal); R92.333 Mammographic heterogeneous density, bilateral breasts; Z80.3 Family history of malignant neoplasm of breast; Z78.0 Asymptomatic menopausal state; Z92.0 Personal history of contraception
CPT/HCPCS: 77063; 77067

== ENCOUNTER → 2025-04-29 | Outpatient (CLI) | payer BC ==
--- NOTE | 2025-04-29 10:56 | MM ---
Reason for Exam: Additional evaluation requested from abnormal screening. Last screening mammogram was performed less than 1 month ago. Patient History: Menarche at age 16. First Full-Term at age 30. Postmenopausal. Hormonal Contraceptives for 10 years from age 20 until age 29. 11/15/2006, Benign Cyst Aspiration on the left side. 2003, Benign Cyst Aspiration on the left side. 07/07/2012, Benign Cyst Aspiration on the left side. 07/07/2012, Benign Core Biopsy on the left side. Sister had breast cancer, age 63. Daughter had breast cancer, age 27. Risk Values: Ave 5 year model risk: 5.7%. NCI Lifetime model risk: 23.5%. Tissue Density: Right: The breasts are extremely dense, which lowers the sensitivity of mammography. Findings: Analyzed By CAD. Upon compression no residual circumscribed density. No suspicious calcifications. Overall Assessment: Probably benign, BI-RAD 3 Management: Diagnostic Mammogram of the right breast in 6 months. . Results were given to the patient verbally at the time of exam. Patient should continue monthly self-breast exams. A clinical breast exam by your physician is recommended on an annual basis. This exam should not preclude additional follow-up of suspicious palpable abnormalities. Note on Ave scores and lifetime risk: 1. A Ave score greater than 3% is considered moderate risk. If this is the case, consider specialist referral to assess eligibility for a risk reducing agent. 2. If overall lifetime risk for the development of breast cancer is 20% or higher, the patient may qualify for future screening with alternating mammogram and breast MRI. [facility], , 04/29/2025 10:52 AM. Electronically signed and approved by: Emmanuel Cade M.D. Radiologis
== END | disposition home or self-care (01) ==
LOC: RADMAMWWP 10:28
PROVIDERS: ATTEND Internal Medicine
DX: R92.8 Other abnormal and inconclusive findings on diagnostic imaging of breast (principal); R92.341 Mammographic extreme density, right breast; Z78.0 Asymptomatic menopausal state; Z92.0 Personal history of contraception; Z80.3 Family history of malignant neoplasm of breast
CPT/HCPCS: 77061; 77065